=== PATIENT | female | born 1975 | race Caucasian/White ===

== ENCOUNTER 2017-09-01 11:52 | Emergency (ER) | payer MEDICAID, OTHER ==
[~2017-09-01] VITALS: Ht 160 cm; Wt 76.0 kg
[~2017-09-01 11:52] MED LIST: BENZ100 PO; OMEP20TA PO; PRED20 PO; ZITH250T PO
[2017-09-01 11:53] VITALS: BP 128/73; PULSE 73; RESP 16; TEMP 98.4; O2SAT 100
--- NOTE | 2017-09-01 12:25 | PD ---
HPI Chief Complaint: Eye Problems/Injury Time Seen by Provider: 12:21 Travel History International Travel<30 days: No Contact w/Intl Traveler<30days: No Traveled to known affect area: No History of Present Illness HPI 42-year-old female presents for evaluation of right eye irritation, itching and drainage. Symptoms started this morning. Symptoms are worse when her eyes open. She denies any foreign body sensation. She does note that she has had a little bit of nasal congestion this morning as well. She has no other complaints at this time. [facility] Past Medical History Anemia: Yes Arthritis: No Asthma: No Autoimmune Disease: No Blood Disorders: No Anxiety: Yes Depression: No Heart Rhythm Problems: No Cancer: No Cardiovascular Problems: No High Cholesterol: No Chemotherapy: No Chest Pain: No Congestive Heart Failure: No COPD: No Cerebrovascular Accident: No Diabetes: No Diminished Hearing: No Endocrine: No GERD: Yes Genitourinary: No Headaches: Yes Hiatal Hernia: No Hypertension: Yes Immune Disorder: No Kidney Stones: No Musculoskeletal: No Neurologic: Yes Psychiatric: Yes Reproductive: No Respiratory: No Integumentary: Yes (VITILIGO) Immunizations Current: Yes Migraines: Yes Radiation Therapy: No Renal Failure: No Seizures: No Sickle Cell Disease: No Sleep Apnea: No Thyroid Disease: No Ulcer: No ?: Not : 2 Para: 2 Miscarriage: 0 : 0 Tubal Ligation: Yes Past Surgical History Abdominal Surgery: No AICD: No Arteriovenous Shunt: No Cardiac Surgery: No Section: Yes ( X 2) Ear Surgery: No Endocrine Surgery: No Eye Surgery: No Genitourinary Surgery: No Gynecologic Surgery: Yes ( X2, TUBAL LIGATION) Insulin Pump: No Joint Replacement: No Oral Surgery: No Pacemaker: No Thoracic Surgery: No Social History Alcohol Use: No Tobacco Use: No Substance Use: No Allergies-Medications (Allergen,Severity, Reaction): Coded Allergies: No Known Allergies (Verified Adverse Reaction, Unknown, 09/01/17) Reported Meds & Prescriptions Reported Meds & Active Scripts Active Review of Systems Eyes: Positive: Tearing, Other (positive for itching), No: Redness, Foreign Body Sensation, Pain HENT: Positive: Congestion Physical Exam Narrative GENERAL: Well-developed well-nourished female in no acute distress SKIN: Warm and dry. HEAD: Atraumatic. Normocephalic. EYES: Pupils equal and round reactive to light extraocular muscles are intact no evidence of foreign body. No conjunctival injection. Wood's lamp is unremarkable. ENT: No nasal bleeding or discharge. Mucous membranes pink and moist. NECK: Trachea midline. No JVD. No lymphadenopathy Data Data Last Documented VS Vital Signs Date Time Temp Pulse Resp B/P (MAP) Pulse Ox O2 Delivery O2 Flow Rate FiO2 09/01/17 11:53 98.4 73 16 128/73 (91) 100 Room Air MDM Medical Decision Making Medical Screen Exam Complete: Yes Emergency Medical Condition: Yes Medical Record Reviewed: Yes Differential Diagnosis Viral conjunctivitis, bacterial conjunctivitis, allergic conjunctivitis, foreign body, corneal abrasion Narrative Course Physical examination is wholly unremarkable. I suspect a mild early viral conjunctivitis. Supportive care recommended. Stable for discharge. Diagnosis Primary Impression: Conjunctivitis Additional Instructions: Follow-up with primary care physician as needed. Return for any emergent medical conditions. Med/Other Pt SpecificInfo: No Change to Meds Disposition: 01 DISCHARGE HOME Condition: Stable Jai Story Sep 01, 2017 12:25
== END 2017-09-01 13:00 | disposition home or self-care (01) ==
LOC: NEPK 11:52
DX: H10.9 Unspecified conjunctivitis (principal)
CPT/HCPCS: 99281